=== PATIENT | female | born 2000 | race Caucasian/White ===

== ENCOUNTER 2024-07-15 20:16 | Emergency (ER) | payer BC ==
[~2024-07-15] VITALS: Ht 157.5 cm; Wt 63.6 kg
--- NOTE | 2024-07-15 21:07 | Physician Documentation ---
History of Present Illness ~ Chief Complaint: Mouth Pain Stated Complaint: MOUTH PAIN Time Seen by MD: 20:54 OK to notify your PCP?: Yes Source: patient Mode of Arrival: POV Exam Limitations: no limitations HPI This is a 24-year-old female who comes in complaining of swelling of the left jaw. The patient states that is she has a tooth in the left mandible that is it was infected and today she was seen at a dental clinic and placed on amoxicillin that is she just began however the swelling got worse throughout the day which concerned her and prompted her to come to the ER. She denies fevers or chills. She states she was going to see a dentist tomorrow to have the suspected dental abscess drained in the tooth addressed. Medication Reconciliation Allergies: Coded Allergies: No Known Allergies (Unverified , 07/15/24) Physical Exam Vital Signs: Temperature: 98.7, Source: Oral, Heart Rate: 91, Respiratory Rate: 18, BP: 121/18, Pulse Oximetry: 97, Weight: 63.640 Pulse Oximetry Reflects: adequate oxygenation General Appearance: alert, WD/WN, no apparent distress Face There is edema of the outer skin of the left mandible. No overlying erythema. Mandible as full range of motion of the opening closing lateral movements. Progress Results/Orders Reviewed/noted all lab results: Yes Results/Orders Vital Signs 07/15/24 20:22 Temp 98.7 Pulse 91 Resp 18 B/P (MAP) 121/18 Pulse Ox 97 Medical Decision Making Findings The patient was started on antibiotics today and states she has not appointment with a dentist tomorrow to address the tooth and drain what is suspected to be a dental abscess. And I told the patient that that is it was the best course of treatment and her concern is that she was going to going to septic which I have little concern for she was an otherwise healthy 24-year-old female who does not smoke or he was drugs. I did give her Rocephin 1 g IM here. I told her to follow up with her dentist tomorrow for definitive care Additional Comment Dental abscess. Periapical abscess. Dental infection. Facial cellulitis. Departure Disposition: HOME / SELF CARE / HOMELESS Impression: Primary Impression: Periapical abscess Condition: Stable Discharge Instructions: Dental Abscess Additional Instructions: Take ibuprofen for pain and apply warm compresses. Follow up with your dentist tomorrow to have the issue definitively addressed. Referrals: NO PRIMARY CARE PROVIDER (PCP) Signature Scribe Signature: No scribe Attestation: The note accurately reflects work and decisions made by me.Anna BERRY 07/15/24 21:06 ANNA OVERTON Jul 15, 2024 21:07
[2024-07-15] MEDS: CefTRIAXone 1000mg IM Kit (w/lidocaine diluent) IM ONE (21:15)
[2024-07-15 21:29] VITALS: BP 120/80; PULSE 80; RESP 18; TEMP 98.6; O2SAT 99
== END 2024-07-15 21:30 | disposition home or self-care (01) ==
LOC: ER 20:16
DX: K04.7 Periapical abscess without sinus (principal)
CPT/HCPCS: 96372; 99283; J0696